=== PATIENT | female | born 1975 | race Caucasian/White ===

== ENCOUNTER → 2017-05-11 | Day surgery (SDC) | payer OTHER ==
--- NOTE | 2017-05-09 09:28 | MH ---
cc: BRANDON COLON MD DATE OF ADMISSION: 05/11/2017 HISTORY OF PRESENT ILLNESS This patient is a 41-year-old white female. She is a 3, para 2. She is being admitted to [facility] for treatment of hypermenorrhea and dysmenorrhea. The patient is well-known to our practice, has been seen on several visits. She explains that her periods are extremely heavy and unresponsive to any medical therapy. Because of this we discussed ablation therapy. She also has a history of Essure insertion and I discussed at length with the rep the ability to perform a NovaSure ablation with the Essure and he has assured me that this is done on a routine basis. PAST MEDICAL HISTORY The medical history is significant for a history of hypertension. She is on lisinopril 40 mg. She also has a history of high cholesterol. She is on simvastatin 40 mg. She has a history of thyroid disease. She is on 50 mcg. She is on allergy medication which includes Rox. SOCIAL HISTORY She is a former smoker but denies any smoking or drug abuse. GYNECOLOGIC HISTORY The patient has a previous history of abnormal Pap smear. She underwent loop electrical excision procedure in the past. Recent Pap smear is also abnormal and the patient will be followed up in our office for therapy of her abnormal Pap smear. The patient also reports a history of lumpectomy in 2011. FAMILY HISTORY Significant in that her father of cancer, mother has diabetes and also a history of liver disease. REVIEW OF SYSTEMS Essentially noncontributory. PHYSICAL EXAMINATION GENERAL: The patient is seen well-developed, well-nourished, in no acute distress. VITAL SIGNS: Blood pressure 109/68, pulse 70, respirations 12. HEENT: Negative. CHEST: Clear to auscultation. CARDIOVASCULAR: Regular rate. ABDOMEN: Soft. Bowel sounds positive. PELVIC: A normal size uterus. There are no adnexal masses palpable. EXTREMITIES: No cyanosis, clubbing or edema. NEUROPSYCHIATRIC: The patient is oriented x3 and showed no gross neurocranial deficit. IMPRESSION Impression admission is hypermenorrhea. PLAN NovaSure ablation with hysteroscopy. Brandon Colon MD JSG/BT /9:04 AM /9:10 AM
[~2017-05-11] VITALS: Ht 175.3 cm; Wt 114.3 kg
[~2017-05-11] MED LIST: *morphine SULFATE 8 MG/ML PERIprocedure ONLY ONE; ALEV220T14 PO; ALLE60TA PO; CABE0.5T PO; CHLORHEXIDINE GLUCONATE 2 % 1 PACK (2 CLOTHS) TOPICAL PRN; DO NOT ADM ANY ANTICOAGULANT DRUGS PRN; FAMOTIDINE 20 MG/2 ML VIAL ONE; INSULIN HUMAN REGULAR 1,000 UNITS/10 ML VIAL SQ PRN; LACTATED RINGER'S 1000 ML IV PRN; LEVO50TA4 PO; LIDOCAINE HCL 1% PF 5 ML AMPULE OTHER ONE; LISI40TA PO; METOPROLOL TARTRATE 25 MG TAB PO PRN; MIDAZOLAM HCL 2 MG/2 ML VIAL ONE; ONDANSETRON HCL 4 MG/2 ML VIAL IV PUSH ONE; ONDANSETRON HCL 4 MG/2 ML VIAL IV PUSH PRN; POVIDONE IODINE 5% (ANTISEPSIS KIT) 4 APPLICATIONS EACH NARE PRN; PROMETHAZINE INJ 25 MG/ML VIAL ONE; PROPOFOL 200 MG/20 ML AMP IV ONE; SIMV40TA PO; SODIUM CHLORID 0.9% 500 ML IV PRN; ceFAZolin 2 GM PREMIX 50 ML IV SCH; oxyCODONE/ACETAMINOPHEN 10 MG/325 MG TAB PO PRN
[2017-05-11 09:42] VITALS: BP 109/76; PULSE 87; RESP 14; TEMP 97.6; O2SAT 97
--- NOTE | 2017-05-11 11:35 | MP ---
cc: BRANDON COLON MD DATE OF SURGERY: 05/11/2017 PREOPERATIVE DIAGNOSIS Hypermenorrhea. POSTOPERATIVE DIAGNOSIS Hypermenorrhea. OPERATION Dilatation, endometrial ablation and a post-procedural hysteroscopy. SURGEON Dr. Colon. ANESTHESIA General. ESTIMATED BLOOD LOSS Minimal. FINDINGS Consistent with irregular uterine cavity. PROFESSOR OF LAW None. COMPLICATIONS None. PROCEDURE The patient was prepped and draped in the dorsal lithotomy position. Weighted speculum was placed in the posterior vaginal vault and the anterior lip of the cervix was grasped with a single-tooth tenaculum. The cervix was dilated up using Dominic dilators and then a NovaSure ablation unit was inserted in the endometrial cavity. The settings for length and width were set and the instrument was fired for the allotted time, after which the instrument was withdrawn and a hysteroscope was then inserted in the endometrial cavity. The hysteroscope was used to ensure that all quadrants of the endometrial cavity were ablated and they were. The hysteroscope was then removed. The tenaculum and speculum were removed. The patient was returned to the recovery room in stable condition. Brandon Colon MD JSG/TLL /7:54 AM /11:17 AM
== END | disposition home or self-care (01) ==
LOC: HSDC 05:45
PROVIDERS: ATTEND Obstetrics & Gynecology
DX: N92.0 Excessive and frequent menstruation with regular cycle (principal)
CPT/HCPCS: 00952; 58563; J0690; J2250; J2270; J2405; J2550; J3010; J7120